=== PATIENT | male | born 1990 ===

== ENCOUNTER 2016-08-20 12:42 | Emergency (ER) | payer OTHER ==
[2016-08-20 12:48] VITALS: BP 139/97; PULSE 94; RESP 18; TEMP 99
--- NOTE | 2016-08-20 12:59 | ED PDOC ---
HPI: Back Time Seen by Provider: 08/20/16 12:48 Chief Complaint (Nursing): Back Pain Chief Complaint (Provider): Back Pain History Per: Patient History/Exam Limitations: no limitations Onset/Duration Of Symptoms: Hrs Current Symptoms Are (Timing): Still Present Additional Complaint(s): Marco A Uriostegui, a 26 year old male presents to the ED complaining of back pain that started around 0930 this morning. The patient reports that he was lifting something while at work when the pain started. Denies numbness, tingling, fever , bowel/bladder incontinence. Pt took NSAID prior to arrival Past Medical History Reviewed: Historical Data, Nursing Documentation, Vital Signs Vital Signs: Last Vital Signs Temp 99 F 08/20/16 12:45 Pulse 94 H 08/20/16 12:45 Resp 18 08/20/16 12:45 BP 139/97 H 08/20/16 12:45 Pulse Ox 100 08/20/16 12:45 - Medical History PMH: No Chronic Diseases - Surgical History Surgical History: No Surg Hx - Family History Family History: States: Unknown Family Hx - Living Arrangements Living Arrangements: With Family - Social History Current smoker - smoking cessation education provided: No Alcohol: Occasional Drugs: Denies - Home Medications Home Medications: Ambulatory Orders Medication Instructions Recorded Ibuprofen [Motrin Tab] 800 mg PO Q6H PRN #20 tab 08/20/16 diaZEpam [Valium] 5 mg PO Q6H PRN #15 tab 08/20/16 - Allergies Allergies/Adverse Reactions: Allergies Allergy/AdvReac Type Severity Reaction Status Date / Time No Known Allergies Allergy Verified 08/20/16 12:50 Review of Systems Constitutional: Negative for: Fever Genitourinary Male: Negative for: Incontinence (No bowel or bladder incontinence.) Musculoskeletal: Positive for: Other (No numbness or tingling to lower back.) Physical Exam - Reviewed Nursing Documentation Reviewed: Yes Vital Signs Reviewed: Yes - Physical Exam Appears: Positive for: Non-toxic, No Acute Distress Head Exam: Positive for: ATRAUMATIC, NORMAL INSPECTION, NORMOCEPHALIC Skin: Positive for: Normal Color, Warm, Dry Eye Exam: Positive for: Normal appearance, EOMI, PERRL ENT: Positive for: Normal ENT Inspection Neck: Positive for: Normal Cardiovascular/Chest: Positive for: Regular Rate, Rhythm, Chest Non Tender. Negative for: Tachycardia Respiratory: Positive for: Normal Breath Sounds. Negative for: Wheezing, Respiratory Distress Back: Positive for: Normal Inspection. Negative for: Vertebral Tenderness (No midline tenderness.) Neurologic/Psych: Positive for: Alert, Oriented, Gait - ECG O2 Sat by Pulse Oximetry: 100 (RA) Pulse Ox Interpretation: Normal Medical Decision Making Medical Decision Makin Initial Impression: 26 year old male presenting with back pain Initial Plan: * Valium 5mg PO Pt reports feeling better on re-evaluation. Scribe Attestation Documented by Tahira Byers acting as a scribe for Virginia Dia PA-C. Scribe Attestation All medical record entries made by the Scribe were at my direction and personally dictated by me. I have reviewed the chart and agree that the record accurately reflects my personal performance of the history, physical exam, medical decision making, and the department course for this patient. I have also personally directed, reviewed, and agree with the discharge instructions and disposition. Disposition - Clinical Impression Clinical Impression: Back pain - Patient ED Disposition Is Patient to be Admitted: No Counseled Patient/Family Regarding: Diagnosis, Need For Followup, Rx Given - Disposition Disposition: Routine/Home Disposition Time: 13:38 Condition: GOOD Prescriptions: diaZEpam [Valium] 5 mg PO Q6H PRN #15 tab PRN Reason: Pain Ibuprofen [Motrin Tab] 800 mg PO Q6H PRN #20 tab PRN Reason: Pain Instructions: Acute Low Back Pain (ED) Print Language: SWISS
[2016-08-20 13:59] VITALS: O2SAT 99
== END 2016-08-20 14:03 | disposition home or self-care (01) ==
LOC: H.ER 12:42
DX: M54.9 Dorsalgia, unspecified (principal); X50.0XXA Overexertion from strenuous movement or load, initial encounter; Y99.0 Civilian activity done for income or pay